=== PATIENT | female | born 1955 | race Caucasian/White ===

== ENCOUNTER 2016-12-16 14:38 | Emergency (ER) | payer BC ==
[~2016-12-16] VITALS: Ht 172.7 cm; Wt 119.7 kg
[2016-12-16 14:40] VITALS: BP 142/107
[2016-12-16] MEDS ORDERED: DIPHTH,PERTUSS(ACELL),TET TOX 0.5 ML DISP.SYRIN. VAX IM ONE (15:00)
[2016-12-16] MEDS ORDERED: LIDOCAINE 1% / SOD BICARB 8.4% 20 ML VIAL. IJ ONE (15:00)
[2016-12-16] MEDS ORDERED: HYDROCODONE/APAP 5/325MG TABLET. PO ONE (15:00)
[2016-12-16] MEDS ORDERED: AMOX1TAB61 PO (15:33)
[2016-12-16] MEDS ORDERED: HYDR-971 PO (15:33)
--- NOTE | 2016-12-16 15:33 | RAD ---
Indication dog bite to the long finger. An AP view of the left hand was obtained as well as oblique and lateral imaging targeted to the long finger. There is slight soft tissue swelling of the finger. A bony abnormality is not seen.
--- NOTE | 2016-12-16 15:33 | PHYS DOC ---
Past Medical History Past Medical History: Asthma, Diabetes-Type II Past Surgical History: Knee Replacement Alcohol Use: None Drug Use: None Adult General Chief Complaint Chief Complaint: ANIMAL BITE HPI HPI Patient is a 61 year old female presents emergency room the complaint of a dog bite with 2 subsequent lacerations to her left middle finger. Patient states she was bitten by her neighbors to wall is well known to be healthy with immunizations are up-to-date. Patient cannot remember the last time she had a tetanus shot. She denies any additional injuries or concerns at this time. Review of Systems Review of Systems Constitutional: Denies fever or chills [] Eyes: Denies change in visual acuity, redness, or eye pain [] HENT: Denies nasal congestion or sore throat [] Respiratory: Denies cough or shortness of breath [] Cardiovascular: No additional information not addressed in HPI [] GI: Denies abdominal pain, nausea, vomiting, bloody stools or diarrhea [] : Denies dysuria or hematuria [] Musculoskeletal: Denies back pain or joint pain [] Integument: Denies rash or skin lesions [] Neurologic: Denies headache, focal weakness or sensory changes [] Endocrine: Denies polyuria or polydipsia [] Current Medications Current Medications Current Medications Medications (Trade) Dose Ordered Sig/Ovidio Start Time Stop Time Status Last Admin Dose Admin Acetaminophen/ Hydrocodone Bitart (Lortab 5/325) 1 tab 1X ONCE 12/16/16 15:00 12/16/16 15:01 DC 12/16/16 15:03 1 TAB Diphtheria/ Tetanus/Acell Pertussis (Boostrix) 0.5 ml ONCE ONCE 12/16/16 15:00 12/16/16 15:01 DC 12/16/16 15:04 0.5 ML Lidocaine/Sodium Bicarbonate (Buffered Lidocaine 1%) 20 ml 1X ONCE 12/16/16 15:00 12/16/16 15:01 DC 12/16/16 15:03 20 ML Allergies Allergies Allergies Coded Allergies Type Severity Reaction Last Updated Verified Sulfa (Sulfonamide Antibiotics) Allergy Intermediate 12/16/16 Yes Physical Exam Physical Exam Constitutional: Well developed, well nourished, no acute distress, non-toxic appearance. HENT: Normocephalic, atraumatic, bilateral external ears normal, oropharynx moist, no oral exudates, nose normal. [] Eyes: PERRLA, EOMI, conjunctiva normal, no discharge. [] Neck: Normal range of motion, no tenderness, supple, no stridor. [] Cardiovascular:Heart rate regular rhythm, no murmur [] Lungs & Thorax: Bilateral breath sounds clear to auscultation [] Abdomen: Bowel sounds normal, soft, no tenderness, no masses, no pulsatile masses. [] Skin: Warm, dry, no erythema, no rash. [] Back: No tenderness, no CVA tenderness. [] Extremities: Left middle finger with 2 lacerations. One laceration is an approximate 2.5 cm over the PIPJ and the other laceration is approximately 1.5 cm overlying the DIPJ. Flexor and extensor mechanism is intact at both the DIPJ PIPJ. These bite lacerations do not appear to involve the joint capsule. Patient 's middle fingers neurovascularly intact with capillary refill less than 2 seconds. Neurologic: Alert and oriented X 3, normal motor function, normal sensory function, no focal deficits noted. [] Psychologic: Affect normal, judgement normal, mood normal. [] Current Patient Data Vital Signs Vital Signs Date Time Temp Pulse Resp B/P Pulse Ox O2 Delivery O2 Flow Rate FiO2 12/16/16 15:03 18 98 Room Air 12/16/16 14:40 98.1 122 142/107 98.1 EKG EKG [] Radiology/Procedures Radiology/Procedures Procedure note #1:2.5 cm bite laceration overlying the PIPJ was anesthetized with buffered 1% lidocaine. Wound was explored for foreign bodies. No foreign bodies were found. The basement of the bite laceration does not extend past the subcutaneous fat. There is no joint capsule or tendon involvement. Wound was cleansed with Betadine solution and rinsed with copious amounts of saline. Wound margins were loosely approximated with 5-0 Prolene in a simple interrupted fashion of a single-layer closure for total of 5 stitches. Procedure note #21.5 cm bite laceration overlying the DIPJ and base of the fingernail was anesthetized with buffered 1% lidocaine. Wound was explored for foreign bodies. No foreign bodies were found. They basement of the bite laceration does not extend past the subcutaneous fat and there is no evidence of extension into the nail matrix. Wound was cleansed with Betadine solution and rinsed with copious amounts of saline. Wound margins were loosely approximated with 5-0 Prolene in a simple interrupted fashion of a singular closure for total of 2 stitches. Patient tolerated the laceration repairs well. 3 views of patient's left index finger were performed and interpreted by the radiologist. There is no evidence of acute bony injury or retained subcutaneous foreign body. Course & Med Decision Making Course & Med Decision Making Pertinent Labs and Imaging studies reviewed. (See chart for details) [] Dragon Disclaimer Dragon Disclaimer This electronic medical record was generated, in whole or in part, using a voice recognition dictation system. Departure Departure Impression: Primary Impression: Dog bite Disposition: HOME, SELF-CARE Condition: IMPROVED Referrals: NON,STAFF (PCP) Patient Instructions: Animal Bite, [id number], Diphtheria Toxoid; Tetanus Toxoid Adsorbed, DT, Td, Laceration Care, Adult, [id number] Additional Instructions: 1. Take the medication as prescribed. 2. Stitches will need to be removed in 7-10 days. 3. Review the discharge instructions provided for reasons to return to the emergency department. 4. Call your primary care doctor's office in the morning to schedule follow-up appointment for wound check by Wednesday or Wednesday of next week. Scripts Amoxicillin/Potassium Clav (Augmentin 875-125 Tablet)1 Each Tablet1 Tab PO BID # 14 TAB Prov:ASHOK COFFEY 12/16/16 Hydrocodone/Apap 5-325 ([place] 5-325 Tablet)1 Each Tablet1 Tab PO PRN Q6HRS PRN PAIN #15 TAB Prov:ASHOK COFFEY 12/16/16 ASHOK COFEFY Dec 16, 2016 15:33
== END 2016-12-16 16:00 | disposition home or self-care (01) ==
LOC: ER 14:38
DX: S61.253A Open bite of left middle finger without damage to nail, initial encounter (principal); J45.909 Unspecified asthma, uncomplicated; E11.9 Type 2 diabetes mellitus without complications; Z96.659 Presence of unspecified artificial knee joint; Z88.2 Allergy status to sulfonamides; W54.0XXA Bitten by dog, initial encounter; Y93.89 Activity, other specified; Y92.89 Other specified places as the place of occurrence of the external cause; Y99.8 Other external cause status
CPT/HCPCS: 12002; 73140; 90471; 90715; 99284-25

== ENCOUNTER → 2016-12-28 | Outpatient (CLI) | payer BC ==
[2016-12-16 14:40] VITALS: BP 142/107
[~2016-12-28] MED LIST: AMOX1TAB61 PO; HYDR-971 PO
[2016-12-28 09:35] LABS: MAGNESIUM 2.1 mg/dL (1.8-2.4)
== END | disposition home or self-care (01) ==
LOC: LAB 08:46
PROVIDERS: ATTEND Internal Medicine Cardiovascular Disease
DX: I10 Essential (primary) hypertension (principal); E78.2 Mixed hyperlipidemia; R01.2 Other cardiac sounds; R60.0 Localized edema
CPT/HCPCS: 36415; 82465; 83036; 83735; 84450; 84460; 86141

== ENCOUNTER → 2018-12-28 | Outpatient (CLI) | payer BC ==
[~2018-12-28] MED LIST changes: +HYDR-3164 PO; -HYDR-971 PO
--- NOTE | 2018-12-28 10:44 | RAD ---
AP standing knees, single view, 12/28/2018: HISTORY: Bilateral knee pain A single AP view of both knees was obtained. There is mild narrowing of the medial compartments of both knee joints with mild marginal spurring. No fracture or dislocation is identified on this limited exam. Electronically signed by: Justin Ervin MD (12/28/2018 10:41 AM) [facility]
--- NOTE | 2018-12-28 13:56 | RAD ---
EXAM: Bilateral knees, 2 views. HISTORY: Pain. COMPARISON: Comparison is made with a standing frontal view both knees obtained on the same date. FINDINGS: Lateral and sunrise views of both knees are obtained. There is tricompartmental spurring. There is no fracture, dislocation or subluxation. No joint effusion is seen. IMPRESSION: Tricompartmental osteoarthritis of both knees. No acute osseous finding. Electronically signed by: Cynthia Landry MD (12/28/2018 1:54 PM) [place] [id number]
--- NOTE | 2018-12-28 14:48 | RAD ---
DATE: 12/28/2018 EXAM: MAMMO VENKAT SCREENING BILATERAL HISTORY: Routine screening COMPARISON: None available This study was interpreted with the benefit of Computerized Aided Detection (CAD). Breast Density: SCATTERED The breast parenchyma shows scattered fibroglandular densities. Breast parenchyma level B. FINDINGS: 2-D and 3-D tomosynthesis imaging was performed in CC and MLO projections. The fibroglandular pattern is multinodular in character. There are numerous smooth small nodules in both breasts. Bilateral smooth nodule such as this tend to be benign. No spiculated mass or architectural distortion is seen. Benign type calcifications are evident. No suspicious microcalcifications are seen. IMPRESSION: Probably benign bilateral breast nodules. In the absence of prior mammograms to establish stability, mammographic surveillance consisting of bilateral mammography in 6 months and then at yearly intervals is suggested. BI-RADS CATEGORY: 3 PROBABLY BENIGN FINDING(S)-SHORT INTERVAL FOLLOW-UP SUGGESTED RECOMMENDED FOLLOW-UP: 6M 6 MONTH FOLLOW-UP PQRS compliance statement: Patient information was entered into a reminder system with a target due date for the next mammogram. Mammography is a sensitive method for finding small breast cancers, but it does not detect them all and is not a substitute for careful clinical examination. A negative mammogram does not negate a clinically suspicious finding and should not result in delay in biopsying a clinically suspicious abnormality. "Our facility is accredited by the [employer] Mammography [employer]."
== END | disposition home or self-care (01) ==
LOC: MAMMO 08:42
PROVIDERS: ATTEND Nurse Practitioner Gerontology
DX: Z12.31 Encounter for screening mammogram for malignant neoplasm of breast (principal); R92.8 Other abnormal and inconclusive findings on diagnostic imaging of breast; M17.0 Bilateral primary osteoarthritis of knee; M76.892 Other specified enthesopathies of left lower limb, excluding foot; M76.891 Other specified enthesopathies of right lower limb, excluding foot
CPT/HCPCS: 73560; 73565; 77063; 77067

== ENCOUNTER → 2019-06-29 | Outpatient (CLI) | payer BC ==
--- NOTE | 2019-06-29 09:34 | RAD ---
Examination: MAMMO VENKAT DIAG BILAT History: Routine screening Comparison/Correlation: 12/28/2018 screening mammogram EXAMINATION: MAMMO VENKAT DIAG BILAT FINDINGS: Full-field digital diagnostic mammography was performed bilaterally. MLO and CC projections bilaterally were provided. CAD was utilized. There are scattered areas of fibroglandular density. Multiple small masses bilaterally are again seen and stable. Benign appearing axillary lymph node(s) are present. There are no suspicious calcification clusters. No new masses or new distortion. IMPRESSION: BI-RADS Category: 1: Negative. Annual mammography is recommended. Patient information is entered into reminder system with a target due date for the next screening mammogram. Mammography is the most sensitive method for finding small breast cancers, but it does not detect them all and is not a substitute for careful clinical examination. A negative mammogram does not negate a clinically suspicious finding and should not result in delay in biopsying a clinically suspicious abnormality. "Our facility is accredited by the [employer] Mammography Program." Electronically signed by: Valdemar Leung MD (06/29/2019 9:32 AM) [facility]
== END | disposition home or self-care (01) ==
LOC: MAMMO 08:33
PROVIDERS: ATTEND Nurse Practitioner Gerontology
DX: R92.8 Other abnormal and inconclusive findings on diagnostic imaging of breast (principal); N64.89 Other specified disorders of breast
CPT/HCPCS: 77066; G0279; 77062